=== PATIENT | female | born 1960 | race Caucasian/White ===

== ENCOUNTER 2022-03-09 13:25 | Emergency (ER) | payer SELFPAY ==
[2022-03-09] MEDS ORDERED: Sodium Chloride 0.9% 10 ML Syringe FLUSH PRN (16:19)
[2022-03-09] MEDS ORDERED: Sodium Chloride 0.9% 100 ML IV ONE (16:19)
[2022-03-09] MEDS ORDERED: Iopamidol 755 Mg/ML 100 ML Bottle IV SCH (16:30)
[2022-03-09] MEDS ORDERED: Aspirin 81 MG Tab.Chew PO ONE (17:40)
[2022-03-09] MEDS ORDERED: Clopidogrel 75 MG Tab PO ONE (17:40)
== END 2022-03-09 18:30 | disposition other institution (70) ==
LOC: JP.ED 13:25
DX: I63.9 Cerebral infarction, unspecified (principal); S20.212A Contusion of left front wall of thorax, initial encounter; S40.022A Contusion of left upper arm, initial encounter; Z20.822 Contact with and (suspected) exposure to COVID-19; W20.8XXA Other cause of strike by thrown, projected or falling object, initial encounter
CPT/HCPCS: 36415; 70450; 70450-26; 70496; 70498; 80048; 99284; 99285-25; A9270-GY; J3490; Q9967